=== PATIENT | female | born 1945 | race Caucasian/White ===

== ENCOUNTER 2017-07-25 16:46 | Inpatient (IN) | payer MEDICARE ==
[~2017-07-25] VITALS: Ht 157.5 cm; Wt 47.2 kg
[2017-07-25] MEDS ORDERED: ACETAMINOPHEN 325 MG TABLET PO PRN (18:00)
[2017-07-25] MEDS ORDERED: MAGNESIUM HYDROXIDE 30 ML UDC PO PRN (18:00)
[2017-07-25] MEDS ORDERED: MAG HYDROX/AL HYDROX/SIMETH 30 ML UDC PO PRN (18:00)
[2017-07-25] MEDS ORDERED: TEMAZEPAM 7.5 MG CAPSULE PO PRN (18:00)
[2017-07-25 18:13] VITALS: BP 141/64
[2017-07-25] MEDS ORDERED: HYDR-3980 PO (18:21)
--- NOTE | 2017-07-25 19:33 | NUR ---
GPS/RN RECEIVED PT ON 5149 . ADMITTING ORDERS FROM DR JANE RECEIVED AND CARRIED OUT. DR LI MADE AWARE OF ADMISSION. ENDORSED TO PLASTIC SURGERY MANAGER TO FOLLOW UP WITH ADMISSION.
[2017-07-25] MEDS ORDERED: HYDROCODONE/APAP 10/325MG 1 EA TABLET PO SCH (20:00)
[2017-07-25] MEDS ORDERED: ONDANSETRON HCL 4 MG/5 ML SOLUTION PO PRN (20:00)
[2017-07-25 20:24] VITALS: BP 154/74
[2017-07-25] MEDS: LORAZEPAM 0.5 MG TABLET PO PRN (21:41)
[2017-07-25] MEDS: ONDANSETRON 4 MG TAB.RAPDIS PO PRN (21:41)
--- NOTE | 2017-07-25 22:00 | NUR ---
ADMITTED A 71 Y/O FEMALE FROM [facility], ON 5150 HOLD, BASED ON HOLD, PATIENT IS WITHDRAWN AND OVERDOSE SELF WITH A MEDICATION OF NORCO. PATIENT ADMITS TO INTENTIONAL OVERDOSE ON 100+ OF NORCO 10/325MG AFTER RECENT PASSING OF FATHER ON 07/21/17, PATIENT FOUND UNCONSCIOUS. PATIENT ADMITTING DX. PSYCHOSIS AND MEDICAL DX. OF BACK INJURY. UPON FACE TO FACE EVALUATION, PATIENT APPEARED ALERT AND ORIENTED X 3-4, CALM, COOPERATIVE, NO AGITATION, WHEN ASKED IF SHE HAS THOUGHT OF HURTING SELF, PATIENT REFUSED TO ANSWER AND STATED I DON'T WANT TO TALK ABOUT IT. PATIENT HAS NO SOB, NO ACUTE DISTRESS, BREATHING EVEN AND UNLABORED, PATIENT C/O NAUSEATED AND BACK PAIN. NOTIFIED DR. PARK AND RECEIVED AN ORDER OF ZOFRAN 4MG NOTED AND CARRIED OUT. BELONGINGS AND CONTRABAND INSPECTED AND PLACED ON THE SAFE AND LOCKED CABINETS BY THE PREVIOUS SHIFT. PAPER WORKS SIGNED BY THE PATIENT. BODY CHECK DONE. WOUND CONSULT TRIGGERED. LORAZEPAM 0.5MG PO GIVEN FOR ANXIETY AND NERVE PAIN. NOTIFIED VANDA MURILLO (SISTER) OF THE ADMISSION. PATIENT REFUSED TO ACCEPT VISITOR. KEPT CLEAN, DRY AND COMFORTABLE, WILL CONTINUE TO MONITOR [id number] FOR SAFETY
--- NOTE | 2017-07-25 22:30 | NUR ---
GPS RN NOTE: PATIENT ASLEEP IN BED, ARAUSABLE TO VERBAL AND TACTILE STIMULI, NO SOB, NO ACUTE DISTRESS, BREATHING EVEN AND UNLABORED, NO S/S OF PAIN AND DISCOMFORT, WILL CONTINUE TO MONITOR [id number] FOR SAFETY
[2017-07-25 23:35] VITALS: BP 122/76
--- NOTE | 2017-07-25 23:59 | NUR ---
GPS RN NOTE: RECEIVED NEW ORDERS TO DR. PARK TO D/C [facility] AND START WITH IBUPROFEN 600MG PO [id number] NOTED AND CARRIED OUT. Addendum: 07/26/17 at 0216 by SHELLI SERNA II, RN NOTIFIED DR. PARK THAT PATIENT HAS NORLITO ORDER AND SHE WAS ADMITTED BECAUSE SHE OVERDOSED HERSELF WITH NORCO.
[2017-07-26] MEDS: IBUPROFEN 600 MG TABLET PO PRN ×3 (00:59→18:21)
--- NOTE | 2017-07-26 02:29 | NUR ---
GPS RN NOTE: PATIENT AWAKE, ALERT AND ORIENTED X 3-4, CALM, COOPERATIVE, DENIES SI/HI, NO AGITATION NOTED, TEMAZEPAM 7.5MG PO GIVEN FOR INABILITY TO SLEEP, WILL CONTINUE TO MONITOR [id number] FOR SAFETY
[2017-07-26] MEDS: LORAZEPAM 0.5 MG TABLET PO PRN (06:41)
[2017-07-26] MEDS: ONDANSETRON 4 MG TAB.RAPDIS PO PRN (06:41)
[2017-07-26 07:53] LABS: ALBUMIN 3.1 g/dL (3.4-5.0); CALCIUM, SERUM 8.2 mg/dL (8.5-10.1); CREATININE 0.6 mg/dL (0.6-1.3); TOTAL PROTEIN, SERUM 6.2 g/dL (6.4-8.2)
[2017-07-26 08:24] VITALS: BP 139/61
[2017-07-26] MEDS: NICOTINE PATCH (14MG) 14 MG PATCH.TD24 TD SCH (09:00)
--- NOTE | 2017-07-26 10:36 | NUR ---
WOUND CARE CONSULT: PT PRESENTS WITH FOUL SMELLING BROWN DEBRIS ON BILATERAL FEET WELL RT NOSE RAISED LESION WITH SCANT BLEEDING. TOENAILS NOTED TO BE VERY LONG. DEFER TO MD. RECOMMEND SURGICAL AND PODIATRIC CONSULTS. STAINING OF SKIN NOTED TO BUTTOCKS WITH BLANCHABLE REDNESS. PT IS INCONTINENT. ALL SKIN PROTECTION MEASURES DISCUSSED WITH NURSING STAFF. WILL SEE PRN. MD IN AGREEMENT WITH PLAN OF CARE. CURRENT BONILLA SCORE IS 16. Addendum: 07/26/17 at 1039 by NUHA BLANC WNDNU Amended: Links added.
[2017-07-26] MEDS ORDERED: Z GUARD REMEDY 2 OZ OINT TP PRN (11:00)
[2017-07-26] MEDS: Z GUARD REMEDY 2 OZ OINT TP SCH (11:25)
[2017-07-26] MEDS: POTASSIUM CHLORIDE 20 MEQ TAB.PRT.SR PO SCH ×3 (12:10→14:00)
[2017-07-26] MEDS: DULOXETINE HCL 30 MG CAPSULE.DR PO SCH (13:54)
[2017-07-26] MEDS ORDERED: VITAMINS A AND D 56.7 GM TUBE TP PRN (15:30)
[2017-07-26 16:00] VITALS: BP 134/75
[2017-07-26] MEDS ORDERED: POTASSIUM CHLORIDE 20 MEQ TAB.PRT.SR PO SCH (16:30)
--- NOTE | 2017-07-26 19:30 | NUR ---
RN NOTES RECEIVED PATIENT IN BED AWAKE. AO X 3, ABLE TO MAKE NEEDS KNOWN. NO ACUTE DISTRESS NOTED. DENIES ANY PAIN AT THIS TIME. DENIES ANY SUICIDAL/HOMICIDAL IDEATION AT THIS TIME. SAFETY REMINDERS GIVEN. ON LOW BED WITH BILATERAL UPPER SIDE RAILS UP. CALL REYES WITHIN EASY REACH. WILL CONTINUE TO MONITOR.
[2017-07-26 19:37] VITALS: BP 132/72
[2017-07-26 20:00] VITALS: BP 132/72
[2017-07-27] MEDS: IBUPROFEN 600 MG TABLET PO PRN ×4 (00:22→20:11)
[2017-07-27] MEDS: ONDANSETRON 4 MG TAB.RAPDIS PO PRN ×2 (00:23→06:41)
--- NOTE | 2017-07-27 06:00 | NUR ---
RN NOTES PATIENT ASLEEP, EASILY AROUSABLE. RESPIRATIONS EVEN. NO SIGNS OF PAIN NOTED. NEEDS ATTENDED. KEPT CLEAN AND DRY. SAFETY PRECAUTIONS AND COMFORT MEASURES IN PLACE. WILL GIVE REPORT TO DAY SHIFT FOR CONTINUITY OF CARE.
[2017-07-27 08:00] VITALS: BP 156/74
[2017-07-27] MEDS: NICOTINE PATCH (14MG) 14 MG PATCH.TD24 TD SCH (09:00)
[2017-07-27] MEDS: Z GUARD REMEDY 2 OZ OINT TP SCH (09:08)
[2017-07-27] MEDS: DULOXETINE HCL 30 MG CAPSULE.DR PO SCH ×2 (12:58→17:51)
[2017-07-27 16:00] VITALS: BP 146/68
[2017-07-27] MEDS: BENZTROPINE MESYLATE (1 MG) 1 MG TABLET PO SCH ×2 (20:00→20:11)
[2017-07-27] MEDS: risperiDONE 0.25 MG TABLET PO SCH ×2 (20:00→20:11)
--- NOTE | 2017-07-27 20:13 | NUR ---
GPS RN NOTES: PATIENT REFUSED SCHEDULED MEDS FOR 1999. PATIENT STATED "I DON'T WANT TO TAKE DRUGS THAT WOULD ALTER MY MIND" OFFERED X3, DESPITE OF EXPLANATION RISKS AND BENEFITS. WILL CONTINUE TO MONITOR.
[2017-07-27 20:51] VITALS: BP 161/82
[2017-07-28] MEDS: ONDANSETRON 4 MG TAB.RAPDIS PO PRN ×2 (07:11→17:06)
[2017-07-28] MEDS: IBUPROFEN 600 MG TABLET PO PRN ×3 (07:11→21:27)
[2017-07-28 08:00] VITALS: BP 157/83
[2017-07-28] MEDS: NICOTINE PATCH (14MG) 14 MG PATCH.TD24 TD SCH (08:26)
[2017-07-28] MEDS: Z GUARD REMEDY 2 OZ OINT TP SCH (08:27)
[2017-07-28 10:00] LABS: CALCIUM, SERUM 8.8 mg/dL (8.5-10.1); CREATININE 0.5 mg/dL (0.6-1.3); MAGNESIUM 1.5 mg/dL (1.8-2.4)
--- NOTE | 2017-07-28 11:48 | NUR ---
GPS RN NOTE: NOTIFIED N.Urbano BRAVO PT LABS K 3,MAG-1.5,CREATININE 0.5 PT BED BOUND, WEAK NOT EATING REFUSING FOOD,BP 157/83 P 90 O2 94 WAITING FOR ORDERS, CONTINUE MONITORING FOR SAFETY AND BEHAVIOR Q 15 MIN.
[2017-07-28] MEDS: DULOXETINE HCL 30 MG CAPSULE.DR PO SCH ×2 (12:43→16:17)
[2017-07-28] MEDS ORDERED: MAGNESIUM OXIDE 400 MG TABLET PO ONE (16:00)
[2017-07-28] MEDS ORDERED: POTASSIUM CHLORIDE 20 MEQ TAB.PRT.SR PO ONE (16:00)
[2017-07-28] MEDS: MEGESTROL ACETATE 40 MG TABLET PO SCH (16:16)
--- NOTE | 2017-07-28 16:43 | NUR ---
Initial Discharge Plan: Up until 07/21/17 pt was residing at [address] [place] [address] with both of her parents; . Upon discharge pt would like to stay at her niece's home (i.e. [address] [phone]) "for sometime." Per pt, she believes that her niece will allow her to stay in her home however pt would like to confirm it. SW was asked by pt not to call niece on this date until pt addressed living with niece first. SW will follow up to ensure pt is safely and adequately discharged.
[2017-07-28 17:12] VITALS: BP 152/73
[2017-07-28] MEDS: BENZTROPINE MESYLATE (1 MG) 1 MG TABLET PO SCH (20:24)
[2017-07-28] MEDS: risperiDONE 0.25 MG TABLET PO SCH (20:24)
[2017-07-28 21:13] VITALS: BP 156/75
[2017-07-28] MEDS: MIRTAZAPINE 15 MG TABLET PO SCH (21:25)
[2017-07-29] MEDS: ONDANSETRON 4 MG TAB.RAPDIS PO PRN ×3 (06:47→23:05)
[2017-07-29 08:00] VITALS: BP 144/71
[2017-07-29] MEDS: NICOTINE PATCH (14MG) 14 MG PATCH.TD24 TD SCH (08:52)
[2017-07-29] MEDS: MEGESTROL ACETATE 40 MG TABLET PO SCH ×2 (08:52→16:15)
[2017-07-29] MEDS: Z GUARD REMEDY 2 OZ OINT TP SCH (09:00)
[2017-07-29] MEDS: DULOXETINE HCL 30 MG CAPSULE.DR PO SCH ×2 (12:22→16:15)
[2017-07-29] MEDS: IBUPROFEN 600 MG TABLET PO PRN (12:38)
--- NOTE | 2017-07-29 12:40 | NUR ---
GPS/RN PATIENT REPORTS 9/10 BACK PAIN, ADMINISTERED IBUPROFEN 600 MG , WILL CONTINUE TO MONITOR.
--- NOTE | 2017-07-29 15:00 | NUR ---
GPS/RN PATIENT REFUSED A&D OINTMENT TO BE APPLIED X 3, EXPLAINED RISKS AND BENEFITS, WILL CONTINUE TO ENCOURAGE TO COMPLY WITH REGIMEN.
--- NOTE | 2017-07-29 16:15 | NUR ---
GPS/RN PATIENT REPORTS NAUSEA, ADMINISTERED ZOFRAN PO, WILL CONTINUE TO MONITOR.
[2017-07-29 16:16] VITALS: BP 154/80
--- NOTE | 2017-07-29 17:34 | NUR ---
GPS/RN PATIENT VOMITED X 1 BUT REPORTS THAT NAUSEA HAS SUBSTANTIALLY IMPROVED.WILL CONTINUE TO MONITOR.
[2017-07-29 20:00] VITALS: BP 150/98
[2017-07-29] MEDS: BENZTROPINE MESYLATE (1 MG) 1 MG TABLET PO SCH (20:00)
[2017-07-29] MEDS: risperiDONE 0.25 MG TABLET PO SCH (20:00)
[2017-07-29] MEDS: MIRTAZAPINE 15 MG TABLET PO SCH (21:16)
--- NOTE | 2017-07-29 21:16 | NUR ---
GPS/MANAGER MULTIMEDIA NOTES: PT. REFUSED ALL HS MEDS ORDERED. PT. FELT NAUSEATED EARLIER AND DOES NOT WANT TO TAKE MEDS. OFFERED 3X. EXPLAINED RISK AND BENEFITS. PT. STILL REFUSED. NO NAUSEA COMPLAIN AT THIS TIME.
[2017-07-30 08:00] VITALS: BP 156/79
[2017-07-30] MEDS: NICOTINE PATCH (14MG) 14 MG PATCH.TD24 TD SCH ×2 (08:44→08:47)
[2017-07-30] MEDS: MEGESTROL ACETATE 40 MG TABLET PO SCH ×2 (08:44→17:33)
[2017-07-30] MEDS: Z GUARD REMEDY 2 OZ OINT TP SCH (08:48)
--- NOTE | 2017-07-30 11:24 | NUR ---
SW was informed by psychiatrist Dr. Ceballos that a petition for a Riese hearing was filed, as patient is not med complaint.
[2017-07-30 16:00] VITALS: BP 147/71
[2017-07-30] MEDS: DULOXETINE HCL 30 MG CAPSULE.DR PO SCH (17:34)
[2017-07-30 20:00] VITALS: BP 154/77
[2017-07-30] MEDS: BENZTROPINE MESYLATE (1 MG) 1 MG TABLET PO SCH (20:36)
[2017-07-30] MEDS: risperiDONE 0.25 MG TABLET PO SCH (20:36)
[2017-07-30] MEDS: MIRTAZAPINE 15 MG TABLET PO SCH (21:05)
[2017-07-30] MEDS: IBUPROFEN 600 MG TABLET PO PRN (23:02)
[2017-07-31 07:35] LABS: CALCIUM, SERUM 9.1 mg/dL (8.5-10.1); CREATININE 0.5 mg/dL (0.6-1.3); POTASSIUM 3.2 mmol/L (3.5-5.1)
[2017-07-31 08:00] VITALS: BP 152/85
[2017-07-31] MEDS: NICOTINE PATCH (14MG) 14 MG PATCH.TD24 TD SCH (09:00)
[2017-07-31] MEDS: Z GUARD REMEDY 2 OZ OINT TP SCH (09:22)
[2017-07-31] MEDS: MEGESTROL ACETATE 40 MG TABLET PO SCH ×2 (09:22→17:02)
[2017-07-31] MEDS ORDERED: POTASSIUM CHLORIDE 20 MEQ TAB.PRT.SR PO ONE (11:00)
[2017-07-31 16:00] VITALS: BP 163/84
[2017-07-31] MEDS: DULOXETINE HCL 30 MG CAPSULE.DR PO SCH (17:02)
[2017-07-31 20:00] VITALS: BP 155/86
[2017-07-31] MEDS: BENZTROPINE MESYLATE (1 MG) 1 MG TABLET PO SCH (20:06)
[2017-07-31] MEDS: risperiDONE 0.25 MG TABLET PO SCH (20:07)
[2017-07-31] MEDS: MIRTAZAPINE 15 MG TABLET PO SCH (21:52)
[2017-08-01] MEDS: IBUPROFEN 600 MG TABLET PO PRN ×2 (04:48→21:20)
[2017-08-01] MEDS: ONDANSETRON 4 MG TAB.RAPDIS PO PRN (04:49)
[2017-08-01 07:27] LABS: CALCIUM, SERUM 9.3 mg/dL (8.5-10.1); CREATININE 0.5 mg/dL (0.6-1.3); POTASSIUM 3.3 mmol/L (3.5-5.1)
[2017-08-01 08:00] VITALS: BP 133/84
[2017-08-01] MEDS: Z GUARD REMEDY 2 OZ OINT TP SCH (08:38)
[2017-08-01] MEDS: NICOTINE PATCH (14MG) 14 MG PATCH.TD24 TD SCH (08:38)
[2017-08-01] MEDS: MEGESTROL ACETATE 40 MG TABLET PO SCH ×2 (08:39→17:05)
[2017-08-01] MEDS ORDERED: POTASSIUM CHLORIDE 20 MEQ TAB.PRT.SR PO SCH (11:00)
[2017-08-01 16:00] VITALS: BP 116/62
[2017-08-01] MEDS: DULOXETINE HCL 30 MG CAPSULE.DR PO SCH (17:05)
[2017-08-01 19:53] VITALS: BP 153/91
[2017-08-01] MEDS: risperiDONE 0.25 MG TABLET PO SCH (19:58)
[2017-08-01] MEDS: BENZTROPINE MESYLATE (1 MG) 1 MG TABLET PO SCH (19:58)
--- NOTE | 2017-08-01 20:00 | NUR ---
GPS RN NOTES: PATIENT TOOK HER ALL SCHEDULED MEDS.
--- NOTE | 2017-08-01 21:20 | NUR ---
GPS RN NOTES: PATIENT C/O BILATERAL LOWER EXTREMITIES. ON A SCALE OF 0/10 AND 10 IS THE WORST PAIN IMAGINABLE. PATIENT RATES 3/10. ADMINISTERED MOTRIN 600MG PO ORDERED. WILL CONTINUE TO ASSESS FOR PAIN.
[2017-08-01] MEDS: MIRTAZAPINE 15 MG TABLET PO SCH (22:17)
[2017-08-02] MEDS: IBUPROFEN 600 MG TABLET PO PRN (03:21)
[2017-08-02 07:56] LABS: CALCIUM, SERUM 9.1 mg/dL (8.5-10.1); CREATININE 0.5 mg/dL (0.6-1.3); POTASSIUM 3.3 mmol/L (3.5-5.1)
[2017-08-02 08:00] VITALS: BP 155/93
[2017-08-02] MEDS: MEGESTROL ACETATE 40 MG TABLET PO SCH ×2 (08:40→17:00)
[2017-08-02] MEDS: NICOTINE PATCH (14MG) 14 MG PATCH.TD24 TD SCH (08:41)
[2017-08-02] MEDS: Z GUARD REMEDY 2 OZ OINT TP SCH (09:00)
[2017-08-02] MEDS ORDERED: POTASSIUM CHLORIDE 20 MEQ TAB.PRT.SR PO SCH ×2 (09:30→17:30)
[2017-08-02 16:00] VITALS: BP 152/81
[2017-08-02] MEDS: DULOXETINE HCL 30 MG CAPSULE.DR PO SCH (17:00)
[2017-08-02] MEDS: BENZTROPINE MESYLATE (1 MG) 1 MG TABLET PO SCH (19:55)
[2017-08-02] MEDS: risperiDONE 0.25 MG TABLET PO SCH (19:56)
[2017-08-02 19:57] VITALS: BP 113/58
[2017-08-02] MEDS: MIRTAZAPINE 15 MG TABLET PO SCH (21:45)
[2017-08-03] MEDS: IBUPROFEN 600 MG TABLET PO PRN ×2 (06:19→17:28)
[2017-08-03 08:00] VITALS: BP 166/87
[2017-08-03] MEDS: NICOTINE PATCH (14MG) 14 MG PATCH.TD24 TD SCH (08:30)
[2017-08-03] MEDS: MEGESTROL ACETATE 40 MG TABLET PO SCH ×2 (08:30→17:16)
[2017-08-03] MEDS: Z GUARD REMEDY 2 OZ OINT TP SCH (08:30)
[2017-08-03] MEDS: ONDANSETRON 4 MG TAB.RAPDIS PO PRN (08:48)
--- NOTE | 2017-08-03 08:50 | NUR ---
GPS/RN PATIENT REPORTS NAUSEA, ADMINISTERED ZOFRAN PO ORDERED, WILL CONTINUE TO MONITOR.
[2017-08-03 16:00] VITALS: BP 103/56
[2017-08-03] MEDS: DULOXETINE HCL 30 MG CAPSULE.DR PO SCH (17:16)
[2017-08-03] MEDS: risperiDONE 0.25 MG TABLET PO SCH (20:28)
[2017-08-03] MEDS: BENZTROPINE MESYLATE (1 MG) 1 MG TABLET PO SCH (20:28)
[2017-08-03 21:01] VITALS: BP 106/60
[2017-08-03] MEDS: MIRTAZAPINE 15 MG TABLET PO SCH (21:12)
[2017-08-04] MEDS: IBUPROFEN 600 MG TABLET PO PRN ×2 (03:10→15:43)
--- NOTE | 2017-08-04 03:20 | NUR ---
GPS RN NOTES: PATIENT C/O BACK LOWER PAIN. ON A SCALE OF 0/10 AND 10 IS THE WORST PAIN IMAGINABLE. PATIENT RATES 3/10. ADMINISTERED MOTRIN 600MG PO ORDERED. WILL CONTINUE TO ASSESS FOR PAIN.
[2017-08-04 08:00] VITALS: BP 102/59
[2017-08-04] MEDS: MEGESTROL ACETATE 40 MG TABLET PO SCH ×2 (08:42→16:28)
[2017-08-04] MEDS: MULTIVITAMINS,THERAGRAN 1 UDTAB TABLET PO SCH (08:43)
[2017-08-04] MEDS: Z GUARD REMEDY 2 OZ OINT TP SCH (08:44)
[2017-08-04] MEDS: NICOTINE PATCH (14MG) 14 MG PATCH.TD24 TD SCH (08:44)
[2017-08-04] MEDS: ASCORBIC ACID 500 MG TABLET PO SCH (08:45)
[2017-08-04 16:00] VITALS: BP 102/57
[2017-08-04] MEDS: DULOXETINE HCL 30 MG CAPSULE.DR PO SCH (16:28)
--- NOTE | 2017-08-04 16:49 | NUR ---
RN-CO: Per Dr Ceballos the Riese Petition was cancelled last August 02Wednesday. Patient is now taking her psych. medications.
[2017-08-04 19:59] VITALS: BP 112/52
[2017-08-04] MEDS: BENZTROPINE MESYLATE (1 MG) 1 MG TABLET PO SCH (20:35)
[2017-08-04] MEDS: risperiDONE 0.25 MG TABLET PO SCH (20:35)
[2017-08-04] MEDS: MIRTAZAPINE 15 MG TABLET PO SCH (21:48)
--- NOTE | 2017-08-04 21:51 | NUR ---
PATIENT TOOK HER NIGHT PILLS. COOPERATIVE, CALM AND MED COMPLIANT
[2017-08-05] MEDS: IBUPROFEN 600 MG TABLET PO PRN ×2 (02:29→08:51)
--- NOTE | 2017-08-05 02:30 | NUR ---
PATIENT WOKE UP C/O BACK PAIN, 3/10 ON PAIN SCALE, MOTRIN 600 MG TAB 1 PO GIVEN.
[2017-08-05 08:00] VITALS: BP 129/73
[2017-08-05] MEDS: MEGESTROL ACETATE 40 MG TABLET PO SCH (08:41)
[2017-08-05] MEDS: Z GUARD REMEDY 2 OZ OINT TP SCH (08:41)
[2017-08-05] MEDS: MULTIVITAMINS,THERAGRAN 1 UDTAB TABLET PO SCH (08:41)
[2017-08-05] MEDS: ASCORBIC ACID 500 MG TABLET PO SCH (08:41)
[2017-08-05] MEDS: NICOTINE PATCH (14MG) 14 MG PATCH.TD24 TD SCH (08:42)
--- NOTE | 2017-08-05 08:51 | NUR ---
GPS/RN PATIENT REPORTS 5/10 BACK PAIN, ADMINISTERED IBUPROFEN 600 MG PER PATIENT REQUEST, WILL CONTINUE TO MONITOR.
--- NOTE | 2017-08-05 09:31 | NUR ---
DR. JANE GAVE AN ORDER TO D/C HOLD AND D/C TO [facility] AND TO CONTINUE SAME MEDS INCLUDING PRN AND TO FOLLOW UP WITH PSYCH AND MEDICAL DOCTORS.
--- NOTE | 2017-08-05 13:50 | NUR ---
GPS/RN PATIENT CLEARED FOR DISCHARGE TO [facility] BY DR JANE AND B2B APPOINTMENT SETTER HELENA. MEDICATIONS RECONCILED BY BOTH DR'S, EXIT CARE, AFTER CARE PLAN AND MEDICATIONS EXPLAINED TO PATIENT, VERBALIZED UNDERSTANDING. BELONGINGS AND VALUABLES RETURNED TO PATIENT, BELONGING FORM SIGNED BY PATIENT. ALL D/C PAPER WORK SIGNED BY PATIENT. SKIN PHOTOS TAKEN HOWEVER, PATIENT REFUSED TO ALLOW RN TO TAKE PHOTO OF SACRUM. PATIENT DENIES SI/HI/AH UPON DISCHARGE, PSYCHIATRIC TREATMENT PLANS MET, REPORT CALLED TO FACILITY, SPOKE WITH MAE. ELICIA JOHNS WAS NOTIFIED PER FRAME GATE MORTISER OPERATOR. PATIENT LEFT UNIT CALM, COOPERATIVE NO DISTRESS NOTED WITH AMBULANCE TRANSPORT AT SIDE.
== END 2017-08-05 13:50 | DRG 885 ==
LOC: GPS 16:46
PROVIDERS: ADMIT Psychiatry & Neurology Psychosomatic Medicine; ATTEND Internal Medicine
DX: F32.2 Major depressive disorder, single episode, severe without psychotic features (principal); E43 Unspecified severe protein-calorie malnutrition; E83.42 Hypomagnesemia; E88.09 Other disorders of plasma-protein metabolism, not elsewhere classified; B35.1 Tinea unguium; F23 Brief psychotic disorder; Z68.1 Body mass index [BMI] 19.9 or less, adult; F17.200 Nicotine dependence, unspecified, uncomplicated; B35.3 Tinea pedis; E87.6 Hypokalemia; F41.9 Anxiety disorder, unspecified; I10 Essential (primary) hypertension; L60.3 Nail dystrophy; M19.90 Unspecified osteoarthritis, unspecified site; M79.7 Fibromyalgia; Z91.5 Personal history of self-harm; Z73.6 Limitation of activities due to disability; M62.50 Muscle wasting and atrophy, not elsewhere classified, unspecified site; C44.301 Unspecified malignant neoplasm of skin of nose
CPT/HCPCS: 36415; 80048-TC; 80053-TC; 80061-TC; 83735-TC; 84134-TC; 87081-TC; 97116-TC; 97530-TC; Q0162